=== PATIENT | male | born 1970 | race Caucasian/White ===

== ENCOUNTER 2021-02-08 06:38 | Day surgery (SDC) | payer OTHER ==
[~2021-02-08] VITALS: Ht 182.9 cm; Wt 85.0 kg
[~2021-02-08 06:38] MED LIST: ACETAMINOPHEN 500 MG TABLET PO PRN; DEXAMETHASONE SOD PHOS 4 MG/ML VIAL ONE; HYDROmorphone 2 MG/ML VIAL IVP PRN; IV RINGERS,LACTATED 1000ML 1,000 ML IV SCH; LIDOCAINE 2% PF 5 ML VIAL. ONE; MORPHINE SULFATE 2 MG/ML INJ. IVP PRN; ONDANSETRON PF 4 MG/2 ML VIAL. ONE; PROCHLORPERAZINE 10 MG/2 ML VIAL. IVP PRN; PROPOFOL 10 MG/ML (20ML) VIAL. IV ONE; fentaNYL PF VIAL 100 MCG/2 ML VIAL IVP PRN
[2021-02-08] MEDS ORDERED: LORA10TA68 PO (06:57)
[2021-02-08 07:02] VITALS: BP 130/81
[2021-02-08] MEDS ORDERED: BUPIVACAINE-EPI 0.25%-1:200000 MPF 30 ML VIAL. ONE (07:02)
[2021-02-08] MEDS ORDERED: fentaNYL PF VIAL 100 MCG/2 ML VIAL ONE ×2 (08:00→08:29)
[2021-02-08] MEDS ORDERED: SEVOFLURANE 31 TO 60 MINUTES. IH ONE (08:28)
[2021-02-08] MEDS ORDERED: GLYCOPYRROLATE 1 MG/5 ML VIAL. ONE (08:30)
[2021-02-08] MEDS ORDERED: KETOROLAC 30 MG/ML VIAL. ONE (08:37)
[2021-02-08] MEDS ORDERED: PROPOFOL 10 MG/ML (20ML) VIAL. IV ONE (08:37)
--- NOTE | 2021-02-08 08:47 | PDOC4 ---
Operative Note Operative Note Date: February 082020 at 845 Preoperative diagnosis: Umbilical hernia Postoperative diagnosis: Same Procedure: Umbilical hernia repair open Surgeon: Rio Specimen: None Dictation: Patient is a 50-year-old male with complaints of a painful bulge at his umbilicus consistent with an umbilical hernia. Procedure of open umbilical hernia repair was explained to the patient detail risk benefits were also discussed including bleeding infection alternatives this procedure also discussed with the patient who seemed to understand and gave a verbal and written consent to have the procedure performed. Patient was taken to the operating room placed in the supine position general anesthesia was initiated once patient was sleeping intubated his abdomen was prepped and draped in usual sterile fashion using ChloraPrep. An area around the umbilicus was injected with quarter percent Marcaine with epinephrine incision was made 15 blade scalpel this is carried down through the subcutaneous tissue using electrocautery right hemostasis until the fascial defect was encountered there was some incarcerated fat with and omentum within the hernia defect this was excised sharply with electrocautery. The fascial defect was then closed with a [id number] 0 Vicryl suture and the deep subcutaneous layer was closed with a 3-0 Vicryl suture and the skin was reapproximated for subcuticular Monocryl Mastisol Steri-Strips and island dressings were applied. Patient was awakened and extubated in the operating room taken to recovery in stable condition all sponge instrument needle counts listed as correct estimated blood loss 5 mL DESIREE TARANGO MD Feb 08, 2021 08:46
[2021-02-08] MEDS ORDERED: HYDR-2761 PO (08:48)
--- NOTE | 2021-02-08 08:50 | DISCH ---
DISCHARGE INSTRUCTIONS Condition on Discharge Condition on Discharge: Stable Activity After Discharge Activity Instructions for Disc: Activity as tolerated Other activity instructions: No lifting more than 20 pounds for 2 weeks Diet after Discharge Diet after Discharge: Regular Wound Incision Care Other wound/incision instructi: Kyra shower in 24-hour Contacting the DRMadai after DC Call your doctor for: If your condition worsens Follow-Up Follow up with: Dr. Tarango in 2 weeks DESIREE TARANGO MD Feb 08, 2021 08:50
[2021-02-08] MEDS ORDERED: HYDROcodone/APAP 5/325MG 1 TAB TABLET PO ONE (09:15)
[2021-02-08 09:29] VITALS: BP 113/68
== END 2021-02-08 09:53 | disposition home or self-care (01) ==
LOC: SURG 06:38
PROVIDERS: ATTEND Surgery
DX: K42.0 Umbilical hernia with obstruction, without gangrene (principal); Z87.891 Personal history of nicotine dependence; Z79.899 Other long term (current) drug therapy; Z98.890 Other specified postprocedural states
CPT/HCPCS: 49587; A4215; A4364; A4930; A6258; A6402; J0690; J1100; J1885; J2405; J2704; J3010; J3490; A4452